=== PATIENT | male | born 1990 | race Caucasian/White ===

== ENCOUNTER 2019-01-04 21:49 | Emergency (ER) | payer SELFPAY ==
[~2019-01-04] VITALS: Ht 172.7 cm; Wt 59.1 kg
[2019-01-04 22:49] LABS: AMPHET/METH SCREEN,URINE NEGATIVE (NEGATIVE); BARBITURATE SCREEN, URINE NEGATIVE (NEGATIVE); BENZODIAZEPINES SCREEN,URINE NEGATIVE (NEGATIVE); CANNABINOID SCREEN,URINE NEGATIVE (NEGATIVE); COCAINE SCREEN,URINE NEGATIVE (NEGATIVE); METHADONE SCREEN, URINE NEGATIVE (NEGATIVE); OPIATE SCREEN,URINE NEGATIVE (NEGATIVE); PHENCYCLIDINE SCREEN,URINE NEGATIVE (NEGATIVE)
[2019-01-05 01:20] VITALS: BP 126/76
== END 2019-01-05 01:21 | disposition home or self-care (01) ==
LOC: EMS 21:52
DX: R00.2 Palpitations (principal); F10.10 Alcohol abuse, uncomplicated; F15.10 Other stimulant abuse, uncomplicated; R03.0 Elevated blood-pressure reading, without diagnosis of hypertension
CPT/HCPCS: 93005